=== PATIENT | male | born 1965 | race Caucasian/White ===

== ENCOUNTER → 2020-04-29 | Outpatient (CLI) | payer OTHER, SELFPAY ==
[2020-04-29 15:59] VITALS: BMI 21.7
[2020-04-29 21:44] LABS: Absolute Lymphocyte Count 1.46 X10^3/uL (0.83-4.51); Basophil% 1.7 % (0-1); Eosinophil# 0.61 X10^3/uL; Eosinophils% 10.6 % (0-5); Hematocrit 44.5 % (40-54); Lymphocyte # 1.46 X10^3/ul (4.0); Lymphocyte % 25.3 % (19-41); Mean Corp Hgb Conc 31.5 g/dL (32-36); Mean Corpuscular Hgb 30.4 pg (27.0-32.0); Mean Corpuscular Volume 96.7 fL (80-94); Mean Platelet Vol. 12.3 fl (6.2-12.0); Monocyte# 0.63 X10^3/uL; Monocyte% 10.9 % (0-10); NRBC Flagged by Analyzer 0 % (0-5); Neutrophil # 2.95 X10^3/uL (2.7-7.7); Neutrophil % 51.3 % (47-70); Platelet Count 152 K/mm3 (150-450); RBC Distribution Width CV 13.3 % (11.6-14.6); RBC Distribution Width SD 47.4 fl (35.1-43.9); White Blood Count 5.8 K/mm3 (4.4-11.0)
[2020-04-29 22:01] LABS: ALB/GLOB Ratio 1.4 RATIO (0.9-2.4); AST(SGOT) 19 U/L (15-37); Alanine Aminotransfer ALT/SGPT 27 U/L (16-61); Albumin, Serum 4.1 g/dL (3.2-5.0); Alkaline Phosphatase 83 U/L (45-117); Anion Gap 2 (5-15); BUN 16 mg/dL (7-18); BUN/Creat Ratio 13.6 RATIO (10-20); Calcium,Total 8.8 mg/dL (8.5-10.1); Chloride 106 mmol/L (98-107); Cholesterol 160 mg/dL (200); Creatinine, Serum 1.18 mg/dL (0.70-1.30); EST Glomerular Filtration Rate 68 mL/min (>60); Est Glom Filt Rate - Afr Amer 82 mL/min (>60); Globulin 2.9 g/dL (2.2-4.2); Glucose 90 mg/dL (74-106); High Density Lipoprotein 53 mg/dL; Potassium 4.3 mmol/L (3.5-5.1); Sodium Level 142 mmol/L (136-145); Triglycerides 193 mg/dL; Very Low Density Lipoprotein 39 mg/dL (5-40)
== END | disposition home or self-care (01) ==
LOC: OLS.AHF 21:06 → LABSPEC 04-30 07:39
PROVIDERS: PCP Nurse Practitioner; Referring Provider Nurse Practitioner; Visit Provider Nurse Practitioner
DX: J44.1 Chronic obstructive pulmonary disease with (acute) exacerbation (principal); E78.5 Hyperlipidemia, unspecified; R35.0 Frequency of micturition
CPT/HCPCS: 80053; 80061; 84153; 85025; G0103

== ENCOUNTER → 2020-07-30 | Outpatient (CLI) | payer OTHER, SELFPAY ==
[2020-04-29 15:59] VITALS: BMI 21.7
== END | disposition home or self-care (01) ==
LOC: LABSPEC 10:54
PROVIDERS: PCP Nurse Practitioner; Referring Provider Nurse Practitioner; Visit Provider Nurse Practitioner
DX: U07.1 COVID-19 (principal)
CPT/HCPCS: 87635; C9803; U0003

== ENCOUNTER → 2021-05-24 | Outpatient (CLI) | payer OTHER, SELFPAY ==
[2021-05-24 21:41] LABS: Absolute Lymphocyte Count 1.26 X10^3/uL (0.83-4.51); Absolute Neutrophil Count 4.9 X10^3/uL (2.0-7.7); Basophil% 1.3 % (0-1); Eosinophil# 0.46 X10^3/uL; Eosinophils% 6.1 % (0-5); Hematocrit 47.7 % (40-54); Hemoglobin 15.2 g/dL (13.0-16.5); Lymphocyte # 1.26 X10^3/ul (0.83-4.51); Lymphocyte % 16.6 % (19-41); Mean Corp Hgb Conc 31.9 g/dL (32-36); Mean Corpuscular Hgb 30.3 pg (27.0-32.0); Mean Corpuscular Volume 95.2 fL (80-94); Mean Platelet Vol. 12.6 fl (6.2-12.0); Monocyte# 0.89 X10^3/uL; Monocyte% 11.7 % (0-10); NRBC Flagged by Analyzer 0 % (0-5); Neutrophil # 4.86 X10^3/uL (2.7-7.7); Neutrophil % 64.2 % (47-70); Platelet Count 154 K/mm3 (150-450); RBC Distribution Width CV 13.2 % (11.6-14.6); RBC Distribution Width SD 46.7 fl (35.1-43.9); Red Blood Count 5.01 M/mm3 (4.6-6.2); White Blood Count 7.6 K/mm3 (4.4-11.0)
[2021-05-24 21:53] LABS: ALB/GLOB Ratio 1.3 RATIO (0.9-2.4); AST(SGOT) 19 U/L (15-37); Alanine Aminotransfer ALT/SGPT 31 U/L (16-61); Albumin, Serum 4.2 g/dL (3.2-5.0); Alkaline Phosphatase 72 U/L (45-117); Anion Gap 3 (5-15); BUN 19 mg/dL (7-18); BUN/Creat Ratio 16.5 RATIO (10-20); Calcium,Total 9.3 mg/dL (8.5-10.1); Chloride 104 mmol/L (98-107); Creatinine, Serum 1.15 mg/dL (0.70-1.30); EST Glomerular Filtration Rate 69 mL/min (>60); Est Glom Filt Rate - Afr Amer 84 mL/min (>60); Globulin 3.2 g/dL (2.2-4.2); Glucose 104 mg/dL (74-106); Lipase 78 U/L (73-393); Potassium 3.8 mmol/L (3.5-5.1); Protein, Total 7.4 g/dL (6.4-8.2); Sodium Level 141 mmol/L (136-145)
== END | disposition home or self-care (01) ==
PROVIDERS: Visit Provider Nurse Practitioner
DX: N20.0 Calculus of kidney (principal); R31.29 Other microscopic hematuria
CPT/HCPCS: 80053; 83690; 85025

== ENCOUNTER 2022-01-14 18:35 | Inpatient (IN) | payer OTHER, SELFPAY ==
[2022-01-14] VITALS (10 sets, daily range): BP systolic 127–140; BP diastolic 54–82; PULSE 94–104; RESP 18–26; TEMP 36.6–36.9; O2SAT 74–97; BMI 17.5
--- NOTE | 2022-01-14 18:47 | EKG12_ITS ---
Test Reason : SOB Blood Pressure : / mmHG Vent. Rate : 092 BPM Atrial Rate : 092 BPM P-R Int : 152 ms QRS Dur : 076 ms QT Int : 338 ms P-R-T Axes : 087 011 083 degrees QTc Int : 417 ms Normal sinus rhythm Right atrial enlargement Borderline ECG Confirmed by GRAY SAUCEDO, POOJA ([id number]), material expeditor JEANNA RAUSCH ([id number]) on 01/18/2022 9:08:37 AM Referred By: Confirmed By:POOJA CASTELLANO MD
[2022-01-14] MEDS: Ipratropium/Albuterol Sulfate 3 ML AMPUL.NEB INHALATION (18:54)
[2022-01-14] MEDS: MethylPREDNISolone 125 MG/2 ML Vial IV (18:54)
[2022-01-14] MEDS: Albuterol 2.5 MG/3 ML VIAL.NEB. INHALATION ×3 (19:00→19:18)
--- NOTE | 2022-01-14 19:08 | EDS_ITS ---
HPI History of Present Illness Chief Complaint: Shortness of Breath Informant: patient and PCP Onset/Context/Timing Onset: Days (Onset of shortness of breath Monday got worse on Monday while showering) Context: gradual Timing: Continuous Quality: Positive for Dyspnea on exertion and Wheezing; Negative for Orthopnea and PND Current Severity: Severe Maximum Severity: Severe Worsened by: Exertion and Coughing Relieved by: Nothing Associated Symptoms cough; Negative for rhinorrhea, post nasal drip, ear pain, fever, sore throat, subjective or chills Chest Pain: Positive for None Narrative Narrative: Patient is a 56-year-old male who is only on an albuterol inhaler. He takes no other medicines. He does have history of COPD and GERD. He denies any ill contacts. He denies fever, chills night sweats. He denies history of VTE, leg pain, swelling discoloration. He has no risk factors. He denies headache, visual, ocular auditory symptoms. Denies rhinorrhea, congestion postnasal drainage. Denies sore throat. [place] change in voice. He denies chest discomfort. He does admit to shortness of breath and minimal activity significantly worsens his breathing. He denies nausea, vomiting diarrhea. Has had an unintentional weight loss. There is no known history of cancer. He denies night sweats or bone pain. PE Risk Factors: Negative for Cancer, OCP + Smoking + > 35, Prior DVT or PE, Recent immobilization, Recent surgery and Recent travel Prior similar symptoms: No Recent Illness/Hospitalization: No PFSH PFSH Medical History Asthma Asthma exacerbation in COPD COPD without exacerbation Home Medications budesonide 160 mcg-glycopyr 9 mcg-formot 4.8 mcg/actuation HFA inhaler 2 inh INHALATION BID #10.7 g 05/24/21 [Rx Last Taken Unknown] Allergy/AdvReac Type Severity Reaction Status Date / Time bupropion [From Wellbutrin] Allergy Severe DIZZY AND Verified 01/14/22 18:36 FELT WEIRD varenicline [From Chantix] AdvReac Severe made him Verified 01/14/22 18:36 feel weird Social History (Updated 01/14/22 @ 19:[address] Dwayne Monterroso MD) household members: none Smoking Status: Light Smoker (<10/day) how long ago did patient quit smoking: Patient 5 years ago smoked 2 to 2.5 packs/day second hand exposure: Yes alcohol intake: never substance use type: does not use ROS ROS ED Constitutional Constitutional ED: Reports weight loss; Denies chills, fever(s) or sweats Eyes Eyes: Denies blurry vision, change in vision or diplopia ENT ENT ED: Denies ear pain, rhinorrhea or sore throat Cardiovascular Cardiovascular: Reports palpitations and racing heartbeat; Denies chest pain, orthopnea or paroxysmal nocturnal dyspnea Respiratory/Chest Respiratory/Chest: Reports cough, dyspnea and dyspnea on exertion; Denies orthopnea, paroxysmal nocturnal dyspnea or sputum Gastrointestinal Gastrointestinal: Denies abdominal pain, constipation, diarrhea, nausea or vomiting Genitourinary Genitourinary ED: Denies dysuria, hematuria or urinary frequency Musculoskeletal Musculoskeletal: Denies arthralgias, back pain, myalgias or neck pain Integumentary Denies rash Neurologic Neurologic: Reports weakness; Denies headache(s) or paresthesias Endocrine Endocrinology: Denies polydipsia, polyphagia or polyuria Hematologic/Lymphatic Hematologic/Lymphatic: Denies easy bleeding or easy bruising EXAM Physical Exam Const Vital Signs: 01/14/22 18:36 01/14/22 18:51 01/14/22 18:52 Temperature 98.2 F Temperature Source Temporal Pulse Rate 103 H Respiratory Rate 26 H Respiratory Effort Short of Breath Labored Respiratory Depth Normal Respiratory Pattern Normal Blood Pressure 132/72 H Blood Pressure Mean 92 Pulse Ox 74 Oxygen Delivery Method Room Air Nasal Cannula Nasal Cannula Oxygen Flow Rate (L/min) 6 4 4 01/14/22 19:22 01/14/22 20:03 Temperature Temperature Source Pulse Rate 102 H Respiratory Rate 18 Respiratory Effort Labored Accessory Muscle Use Retracting Respiratory Depth Deep Respiratory Pattern Tachypnea Blood Pressure 127/82 H Blood Pressure Mean 97 Pulse Ox 97 Oxygen Delivery Method Nasal Cannula Nasal Cannula Oxygen Flow Rate (L/min) 6 6 Patient is obvious respiratory distress with use of accessory muscles and retractions. He is only able to say 1 word before gasping for breath. Positive well nourished, well developed and cachectic General Appearance ED: well developed and cachectic; Negative for NAD or pallor Nutritional Appearance: cachectic HEENT Reports TM's clear and dry mucous membranes atraumatic; Negative for trauma or tenderness Tympanic Membrane ED: Yes TM's clear Mouth ED: Yes dry mucous membranes Mouth: dry mucous membranes Eyes PERRL and EOMs intact bilaterally General Eye ED: Negative for pale conjunctiva or scleral icterus Neck no lymphadenopathy, supple, no meningeal signs and no JVD Neck Narrative: Trachea is midline. There is no inspiratory expiratory stridor. Resp No normal respiratory effort and No clear to auscultation bilaterally Auscultation: wheezes expiratory wheezes and throughout and diminished lung sounds Cardio regular rhythm, S1 normal heart sound, S2 normal heart sound and no murmurs Rate: tachycardic GI non-tender, non-distended and no masses Auscultation: normoactive bowel sounds Palpation: soft Back/Spine no CVA tenderness and normal to inspection General Back: Negative for tenderness Extremity normal to inspection Extremity Narrative: There is no asymmetry, swelling, discoloration, leg vein distention, palpable cords or tenderness along the distribution of the deep venous system. General Extremety ED: Negative for edema or tenderness General Extremity: Negative for edema Neuro oriented x3 and CN's II-XII intact bilaterally Frank Coma Scale: document GCS findings Spontaneous Obeys Commands Oriented 15 Sensorium / Orientation: alert Psych mental status grossly normal Thought Process: normal thought process Skin no wounds General Skin Exam: Negative for jaundice or pallor Lesions: no lesions Rashes: no rashes MDM MDM MDM Narrative Medical decision making narrative: She presents with respiratory distress. Need to evaluate for pneumothorax, COPD exacerbation, pneumonia doubt CHF. Pulmonary embolus is in the differential as well. Because of the wheezing history of smoking he was treated with Solu-Medrol, DuoNeb and albuterol. Lab Data Attestation: I reviewed the patient's lab results. Lab results narrative: Lactate is elevated due to hypoxia, type I/type a lactic acidosis Patient has polycythemia vera due to smoking. Coags normal. Electrolyte panel reveals elevated CO2 which is consistent with chronic respiratory failure. Labs: Laboratory Results - last 24 hr 01/14/22 01/14/22 01/14/22 18:50 18:50 18:50 WBC 8.6 RBC 5.76 Hgb 18.1 H* Hct 54.5 H MCV 94.6 H MCH 31.4 MCHC 33.2 RDW Std Deviation 46.1 H RDW Coeff of Hansel 13.1 Plt Count 170 MPV 12.1 H Immature Gran % (Auto) 0.200 Neut % (Auto) 80.7 H Lymph % (Auto) 8.5 L [place] % (Auto) 9.6 Eos % (Auto) 0.5 Baso % (Auto) 0.5 Absolute Neuts (auto) 6.9 Absolute Lymphs (auto) 0.73 L Nucleated RBC % 0 Diff Path Review May foll PT 13.4 INR 1.1 APTT 30.4 Sodium 136 Potassium 4.8 Chloride 97 L Carbon Dioxide 35.0 H Anion Gap 4 L BUN 23 H Creatinine 1.04 Estim Creat Clear Calc 55.63 Est GFR (MDRD) Af Amer 94 Est GFR (MDRD) Non-Af 78 BUN/Creatinine Ratio 22.1 H Glucose 114 H Lactic Acid Calcium 9.8 Total Bilirubin 0.90 AST 23 ALT 43 Alkaline Phosphatase 118 H Total Protein 8.5 H Albumin 4.4 Globulin 4.1 Albumin/Globulin Ratio 1.1 01/14/22 18:50 WBC RBC Hgb Hct MCV MCH MCHC RDW Std Deviation RDW Coeff of Hansel Plt Count MPV Immature Gran % (Auto) Neut % (Auto) Lymph % (Auto) [place] % (Auto) Eos % (Auto) Baso % (Auto) Absolute Neuts (auto) Absolute Lymphs (auto) Nucleated RBC % Diff Path Review PT INR APTT Sodium Potassium Chloride Carbon Dioxide Anion Gap BUN Creatinine Estim Creat Clear Calc Est GFR (MDRD) Af Amer Est GFR (MDRD) Non-Af BUN/Creatinine Ratio Glucose Lactic Acid 2.4 H* Calcium Total Bilirubin AST ALT Alkaline Phosphatase Total Protein Albumin Globulin Albumin/Globulin Ratio ABG reveals acute on chronic CO2 retention with hypoxia. pH 7.32, PCO2 59.7, PO2 75.3, bicarb 31.4 with base excess of 5.4. O2 saturation 93.3% on supplemental oxygen by nasal cannula, 40% ABG Data ABG results: ABG 01/14/22 19:07 Specimen Type ART pH 7.33 L Bicarbonate Actual 31.3 H Total CO2 33 Base Excess 5 H O2 Saturation 93 L O2 % 40 ABG pCO2 59.7 H ABG pO2 75 O2 Delivery Device Cannula Radiography Chest X-Ray - ED: 1 View, Read by ED Physician (Hyper patient with chronic changes. Cardiac silhouette and size normal. Perihilar regions unremarkable. Osseous structures unremarkable.), Normal, Heart, Mediastinum, Bony Structures, No Acute Disease and Chronic Changes EKG Initial EKG: Attestation: I personally reviewed and interpreted this EKG as follows: Interpretation: Sinus Rhythm (Trickle rate is 92. MN interval is 152 ms. QS duration 76 ms. QT intervals 338 ms. [place] is normal. There is evidence of biatrial enlargement consistent with cor pulmonale. T waves are slightly peaked however his potassium is normal.) Critical Care Time Critical Care Time: Yes Critical care time (excluding procedures): 30-74 minutes (31 minutes), Including time spent: (History, physical, documentation, interpretation of laboratory results and chest x-ray), Discussing w/Patient &/or Family/Tube Winder, Discussing w/Consultants and Arranging Admission or Transfer Discharge Plan Dx/Rx/DC Orders Clinical Impression: Acute on chronic respiratory failure with hypoxia and hypercapnia, Chronic obstructive pulmonary disease with (acute) exacerbation, Acidosis, lactic Disposition Disposition: Acute Care Hospital [facility]
--- NOTE | 2022-01-14 19:15 | RAD_ITS ---
STUDY: X-RAY CHEST REASON FOR EXAM: Male, 56 years old. Respiratory failure TECHNIQUE: AP portable. 7:13 PM. 2 images. COMPARISON: None. FINDINGS: LUNGS: Lungs are hyperinflated. No consolidation. No pneumothorax. MEDIASTINUM: Unremarkable. CARDIAC SILHOUETTE: Not enlarged. BONES AND SOFT TISSUES: No acute abnormalities. RAD/Chest 1 View (Portable) IMPRESSION: Hyperinflated. No infiltrates. Electronically Signed: Cristel Fontaine MD at 20:17 EDT ,
[2022-01-14 19:16] LABS: Base Excess 5 mmol/L (-2 to +2); Bicarbonate 31.3 mmol/L (22-26); Blood Gas Specimen Type ART; FI02 40; O2 Delivery Device Cannula; PO2 75 mmHG (75-100); SO2 93 % (95-99); Total Carbon Dioxide 33 mmol/L; pCO2 59.7 mmHg (35-45); pH 7.33 (7.35-7.45)
[2022-01-14 19:16] LABS: Absolute Lymphocyte Count 0.73 X10^3/uL (0.83-4.51); Absolute Neutrophil Count 6.9 X10^3/uL (2.0-7.7); Basophil# 0.04 X10^3/uL; Basophil% 0.5 % (0-1); Eosinophil# 0.04 X10^3/uL; Eosinophils% 0.5 % (0-5); Hematocrit 54.5 % (40-54); Hemoglobin 18.1 g/dL (13.0-16.5); Lymphocyte # 0.73 X10^3/ul (0.83-4.51); Lymphocyte % 8.5 % (19-41); Mean Corp Hgb Conc 33.2 g/dL (32-36); Mean Corpuscular Hgb 31.4 pg (27.0-32.0); Mean Corpuscular Volume 94.6 fL (80-94); Mean Platelet Vol. 12.1 fl (6.2-12.0); Monocyte# 0.82 X10^3/uL; Monocyte% 9.6 % (0-10); NRBC Flagged by Analyzer 0 % (0-5); Neutrophil # 6.93 X10^3/uL (2.7-7.7); Neutrophil % 80.7 % (47-70); Platelet Count 170 K/mm3 (150-450); RBC Distribution Width CV 13.1 % (11.6-14.6); RBC Distribution Width SD 46.1 fl (35.1-43.9); Red Blood Count 5.76 M/mm3 (4.6-6.2); White Blood Count 8.6 K/mm3 (4.4-11.0)
[2022-01-14 19:32] LABS: Differential Indicated SCAN CRITERIA MET
[2022-01-14 19:33] LABS: ALB/GLOB Ratio 1.1 RATIO (0.9-2.4); AST(SGOT) 23 U/L (15-37); Alanine Aminotransfer ALT/SGPT 43 U/L (16-61); Albumin, Serum 4.4 g/dL (3.2-5.0); Alkaline Phosphatase 118 U/L (45-117); Anion Gap 4 (5-15); BUN 23 mg/dL (7-18); BUN/Creat Ratio 22.1 RATIO (10-20); Calcium,Total 9.8 mg/dL (8.5-10.1); Chloride 97 mmol/L (98-107); Creatinine, Serum 1.04 mg/dL (0.70-1.30); EST Glomerular Filtration Rate 78 mL/min (>60); Est Glom Filt Rate - Afr Amer 94 mL/min (>60); Estimated Creatinine Clearance 55.63 ml/min; Globulin 4.1 g/dL (2.2-4.2); Glucose 114 mg/dL (74-106); Potassium 4.8 mmol/L (3.5-5.1); Protein, Total 8.5 g/dL (6.4-8.2); Sodium Level 136 mmol/L (136-145)
[2022-01-14 19:34] LABS: International Normalized Ratio 1.1; Partial Thromboplast Time 30.4 Seconds (24.1-36.2); Prothrombin Time (Protime)PT. 13.4 SECONDS (11.7-14.9)
[2022-01-14 19:48] LABS: Lactic Acid 2.4 mmol/L (0.4-1.9)
--- NOTE | 2022-01-14 20:14 | PCM.HP.STD ---
HPI - General HPI Narrative MARJORIE VANEGAS, is a 56 M who presents to the hospital after seeing his PCP for shortness of breath. At the primary care office, he was found to be 73% on room air and was transferred to the ER. In the ER an ABG was performed which demonstrated mild acidosis with pH of 7.33 with a PCO2 of 59.7 and a PO2 of 75. He was started on oxygen in the ED, flu and COVID testing were negative. It does look like he has hypoxic induced elevation of his hemoglobin to 18.1, renal function is stable [facility] Medical History Asthma Asthma exacerbation in COPD COPD without exacerbation Home Medications budesonide 160 mcg-glycopyr 9 mcg-formot 4.8 mcg/actuation HFA inhaler 2 inh INHALATION BID #10.7 g 05/24/21 [Rx Last Taken Unknown] Allergy/AdvReac Type Severity Reaction Status Date / Time bupropion [From Wellbutrin] Allergy Severe DIZZY AND Verified 01/14/22 18:36 FELT WEIRD varenicline [From Chantix] AdvReac Severe made him Verified 01/14/22 18:36 feel weird Family History (Updated 01/14/22 @ 20:[address] Stephen Hurley MD) Other Diabetes Surgical History no surgical history no surgical history Social History (Updated 01/14/22 @ 19:[address] Dwayne Monterroso MD) household members: none Smoking Status: Light Smoker (<10/day) how long ago did patient quit smoking: Patient 5 years ago smoked 2 to 2.5 packs/day second hand exposure: Yes alcohol intake: never substance use type: does not use ROS Constitutional Constitutional: Denies chills, fatigue, fever(s) or malaise Eyes Eyes: Denies blurry vision ENT HEENT: Denies headache(s) or nasal discharge Cardiovascular Cardiovascular: Denies chest pain, dyspnea on exertion or syncope Respiratory/Chest Respiratory/Chest: Reports cough and shortness of breath at rest; Denies shortness of breath with exertion Gastrointestinal Gastrointestinal: Denies constipation, diarrhea, nausea or vomiting Genitourinary Genitourinary: Denies dysuria Neurologic Neurologic: Denies focal weakness, numbness or tremor(s) Psychiatric Psychiatric: Denies anxiety or depression Vital Signs Vital Signs Vital Signs: 01/14/22 18:36 01/14/22 18:51 01/14/22 18:52 Temperature 98.2 F Temperature Source Temporal Pulse Rate 103 H Respiratory Rate 26 H Respiratory Effort Short of Breath Labored Respiratory Depth Normal Respiratory Pattern Normal Blood Pressure 132/72 H Blood Pressure Mean 92 Pulse Ox 74 Oxygen Delivery Method Room Air Nasal Cannula Nasal Cannula Oxygen Flow Rate (L/min) 6 4 4 01/14/22 19:22 01/14/22 20:03 Temperature Temperature Source Pulse Rate 102 H Respiratory Rate 18 Respiratory Effort Labored Accessory Muscle Use Retracting Respiratory Depth Deep Respiratory Pattern Tachypnea Blood Pressure 127/82 H Blood Pressure Mean 97 Pulse Ox 97 Oxygen Delivery Method Nasal Cannula Nasal Cannula Oxygen Flow Rate (L/min) 6 6 Weight Weight: 112 lb Body Mass Index (BMI) 17.5 Physical Exam Const alert and oriented x3 General Appearance: cooperative HEENT normocephalic Mouth: dry mucous membranes Eyes PERRL, EOMs intact bilaterally and conjunctivae normal Neck supple and no JVD Resp normal respiratory effort, no retractions and no use of accessory muscles Effort and Inspection: prolonged expiratory phase Auscultation: wheezes; Negative for crackles, rales or rhonchi Cardio regular rhythm, S1 normal heart sound, S2 normal heart sound and no murmurs Rate: tachycardic GI soft to palpation, non-tender and non-distended; Negative for hepatosplenomegaly Extremity no clubbing, cyanosis or edema Skin no rashes or lesions noted Neuro no focal motor deficits and no sensory deficits noted Psych Appearance: appropriate Mood & Affect: flat affect Results Lab / Micro Data Result Diagrams: 01/14/22 18:50 01/14/22 18:50 Labs: Laboratory Results - last 24 hr 01/14/22 18:50: WBC 8.6, RBC 5.76, Hgb 18.1 H*, Hct 54.5 H, MCV 94.6 H, MCH 31.4, MCHC 33.2, RDW Std Deviation 46.1 H, RDW Coeff of Hansel 13.1, Plt Count 170, MPV 12.1 H, Immature Gran % (Auto) 0.200, Neut % (Auto) 80.7 H, Lymph % (Auto) 8.5 L, [place] % (Auto) 9.6, Eos % (Auto) 0.5, Baso % (Auto) 0.5, Absolute Neuts (auto) 6.9, Absolute Lymphs (auto) 0.73 L, Nucleated RBC % 0, Diff Path Review May foll 01/14/22 18:50: PT 13.4, INR 1.1, APTT 30.4 01/14/22 18:50: Sodium 136, Potassium 4.8, Chloride 97 L, Carbon Dioxide 35.0 H, Anion Gap 4 L, BUN 23 H, Creatinine 1.04, Estim Creat Clear Calc 55.63, Est GFR (MDRD) Af Amer 94, Est GFR (MDRD) Non-Af 78, BUN/Creatinine Ratio 22.1 H, Glucose 114 H, Calcium 9.8, Total Bilirubin 0.90, AST 23, ALT 43, Alkaline Phosphatase 118 H, Total Protein 8.5 H, Albumin 4.4, Globulin 4.1, Albumin/Globulin Ratio 1.1 01/14/22 18:50: Lactic Acid 2.4 H* Micro: Microbiology 01/14/22 18:55 Nasal Secretion SARS-CoV-2 & FLU Antigen (Rapid) - Final ABG Data ABG results: ABG 01/14/22 19:07 Specimen Type ART pH 7.33 L Bicarbonate Actual 31.3 H Total CO2 33 Base Excess 5 H O2 Saturation 93 L O2 % 40 ABG pCO2 59.7 H ABG pO2 75 O2 Delivery Device Cannula Assessment & Plan Assessment/Plan (1) Acute on chronic respiratory failure with hypoxia and hypercapnia: (2) Chronic obstructive pulmonary disease with (acute) exacerbation: PLAN: 1. Acute on chronic hypoxic and hypercapnic respiratory failure secondary to COPD exacerbation ? Continue with Solu-Medrol and duo nebs ? Continue to wean oxygen, incentive spirometry ? Flu and COVID-negative ? Would benefit from pulmonology outpatient follow-up, chest x-ray shows significant hyperinflation ? No's white blood cell count or fever so we will hold off on any antibiotics, Will obtain a sputum culture DVT: Lovenox Charges/Coding Visit Charges Inpatient E&M: 46983 Init Hosp L2
[2022-01-14] MEDS: 0.9% Saline Lock 10 ML Syringe IV (22:00)
[2022-01-14 23:04] LABS: Reflex Lactate? Y
[2022-01-15] VITALS (20 sets, daily range): BP systolic 110–142; BP diastolic 61–70; PULSE 83–106; RESP 16–20; TEMP 36.1–36.7; O2SAT 83–96
[2022-01-15 00:25] LABS: Lactic Acid 1.3 mmol/L (0.4-1.9)
[2022-01-15] MEDS: Acetaminophen 325 MG Tablet 650 MG PO (03:25)
[2022-01-15 06:21] LABS: Absolute Lymphocyte Count 0.39 X10^3/uL (0.83-4.51); Absolute Neutrophil Count 4.2 X10^3/uL (2.0-7.7); Basophil# 0.01 X10^3/uL; Basophil% 0.2 % (0-1); Hematocrit 49.4 % (40-54); Hemoglobin 15.7 g/dL (13.0-16.5); Lymphocyte # 0.39 X10^3/ul (0.83-4.51); Mean Corp Hgb Conc 31.8 g/dL (32-36); Mean Corpuscular Volume 94.3 fL (80-94); Mean Platelet Vol. 11.9 fl (6.2-12.0); Monocyte# 0.21 X10^3/uL; Monocyte% 4.3 % (0-10); NRBC Flagged by Analyzer 0 % (0-5); Neutrophil # 4.24 X10^3/uL (2.7-7.7); Neutrophil % 87.1 % (47-70); POSITIVE DIFFERENTIAL YES; Platelet Count 157 K/mm3 (150-450); RBC Distribution Width CV 12.8 % (11.6-14.6); RBC Distribution Width SD 44.6 fl (35.1-43.9); Red Blood Count 5.24 M/mm3 (4.6-6.2); White Blood Count 4.9 K/mm3 (4.4-11.0)
[2022-01-15 06:24] LABS: Differential Indicated SCAN CRITERIA MET
[2022-01-15 06:57] LABS: Anion Gap 5 (5-15); BUN 21 mg/dL (7-18); BUN/Creat Ratio 26.9 RATIO (10-20); Calcium,Total 9.4 mg/dL (8.5-10.1); Chloride 97 mmol/L (98-107); Creatinine, Serum 0.78 mg/dL (0.70-1.30); EST Glomerular Filtration Rate 108 mL/min (>60); Est Glom Filt Rate - Afr Amer 131 mL/min (>60); Estimated Creatinine Clearance 74.32 ml/min; Glucose 145 mg/dL (74-106); Potassium 4.7 mmol/L (3.5-5.1); Sodium Level 133 mmol/L (136-145)
[2022-01-15 07:00] LABS: Differential Comment SCANNED
[2022-01-15] MEDS: Ipratropium/Albuterol Sulfate 3 ML AMPUL.NEB INHALATION ×4 (07:02→18:41)
--- NOTE | 2022-01-15 07:28 | PN.HOSP_ITS ---
Subjective Subjective Patient is very short of breath. He is lifelong smoker started in teenage at age of 13. Smokes about a pack per day recently cut to half pack in last 3 years. Last smoking was about 1 week ago. Objective Data Objective Data Vital Signs: Vital Signs Temp Pulse Resp BP Pulse Ox 97.9 F 83 19 H 142/62 H 92 01/15/22 05:58 01/15/22 06:37 01/15/22 06:10 01/15/22 05:58 01/15/22 05:58 Oxygen Flow Rate (L/min) 8 Oxygen Delivery Method High Flow Weight: 112 lb 3.445 oz Body Mass Index (BMI) 17.5 Lab / Micro Data Result Diagrams: 01/15/22 05:59 01/15/22 05:59 Labs: Laboratory Results - last 24 hr 01/14/22 18:50: WBC 8.6, RBC 5.76, Hgb 18.1 H*, Hct 54.5 H, MCV 94.6 H, MCH 31.4, MCHC 33.2, RDW Std Deviation 46.1 H, RDW Coeff of Hansel 13.1, Plt Count 170, MPV 12.1 H, Immature Gran % (Auto) 0.200, Neut % (Auto) 80.7 H, Lymph % (Auto) 8.5 L, [place] % (Auto) 9.6, Eos % (Auto) 0.5, Baso % (Auto) 0.5, Absolute Neuts (auto) 6.9, Absolute Lymphs (auto) 0.73 L, Nucleated RBC % 0, Diff Path Review May foll 0 01/14/22 18:50: PT 13.4, INR 1.1, APTT 30.4 01/14/22 18:50: Sodium 136, Potassium 4.8, Chloride 97 L, Carbon Dioxide 35.0 H, Anion Gap 4 L, BUN 23 H, Creatinine 1.04, Estim Creat Clear Calc 55.63, Est GFR (MDRD) Af Amer 94, Est GFR (MDRD) Non-Af 78, BUN/Creatinine Ratio 22.1 H, Glucose 114 H, Calcium 9.8, Total Bilirubin 0.90, AST 23, ALT 43, Alkaline Phosphatase 118 H, Total Protein 8.5 H, Albumin 4.4, Globulin 4.1, Albumin/Globulin Ratio 1.1 01/14/22 18:50: Lactic Acid 2.4 H* 01/14/22 23:44: Lactic Acid 1.3 01/15/22 05:59: WBC 4.9, RBC 5.24, Hgb 15.7, Hct 49.4, MCV 94.3 H, MCH 30.0, MCHC 31.8 L, RDW Std Deviation 44.6 H, RDW Coeff of Hansel 12.8, Plt Count 157, MPV 11.9, Immature Gran % (Auto) 0.400, Neut % (Auto) 87.1 H, Lymph % (Auto) 8.0 L, [place] % (Auto) 4.3, Eos % (Auto) 0.0, Baso % (Auto) 0.2, Absolute Neuts (auto) 4.2, Absolute Lymphs (auto) 0.39 L, Nucleated RBC % 0, Differential Comment SCANNED 01/15/22 05:59: Sodium 133 L, Potassium 4.7, Chloride 97 L, Carbon Dioxide 31.0, Anion Gap 5, BUN 21 H, Creatinine 0.78, Estim Creat Clear Calc 74.32, Est GFR (MDRD) Af Amer 131, Est GFR (MDRD) Non-Af 108, BUN/Creatinine Ratio 26.9 H, Glucose 145 H, Calcium 9.4 Micro: Microbiology 01/14/22 18:55 Nasal Secretion SARS-CoV-2 & FLU Antigen (Rapid) - Final ABG Data ABG results: ABG 01/14/22 19:07 Specimen Type ART pH 7.33 L Bicarbonate Actual 31.3 H Total CO2 33 Base Excess 5 H O2 Saturation 93 L O2 % 40 ABG pCO2 59.7 H ABG pO2 75 O2 Delivery Device Cannula Radiography Diagnostic Testing: Radiology Impression Chest X-Ray 01/14/22 19:15 IMPRESSION: Hyperinflated. No infiltrates. Physical Exam Narrative Patient lost 10 pounds weight in last 3 months. General: Alert, Oriented x3, Cooperative, pulmonary cachexia HEENT: Atraumatic, PERRLA, EOMI, Normocephalic Oral: No Gingival or Mucosal Lesions/ Ulcerations Neck: Supple, No JVD, Negative Carotid Bruits Chest/lungs: Pectus excavatum. Air entry severely diminished in all lung echevarria. Bilateral rhonchi present. Dyspnea on conversation/minimal exertion. Cardiovascular: Heart rate in 90s normal S1, Normal S2, No murmurs Abdomen: Bowel Sounds Present, Soft, Non Tender, Non-Distended : No renal angle tenderness. No suprapubic tenderness. Extremities: No edema, Capillary Refill Less than 3 Seconds Skin: No rashes, No breakdown Musculoskeletal: Moderate loss of muscles of extremities loss of subcutaneous fat. No Tenderness to Palpation of Joints or Extremities Neurological: Cranial nerves II-XII grossly intact, DTR 2+/4 and Symmetrical, Neuro grossly intact Psych/Mental Status: Normal Affect, Appropriate Assessment & Plan Assessment/Plan (1) Acute on chronic respiratory failure with hypoxia and hypercapnia: (2) Chronic obstructive pulmonary disease with (acute) exacerbation: PLAN: This is a 56-year-old gentleman was admitted for severe shortness of breath, hypoxia 73% on room air. 1. Acute on chronic hypoxic and hypercapnic respiratory failure secondary to COPD exacerbation: ABG 7.33/60/75 on 40% FiO2. ABG suggestive of chronic respiratory acidosis with bicarb 35. ABG interpretation shows mixed acid base abnormality with chronic respiratory acidosis and metabolic alkalosis. Discussed with the manager credit collections and agreed to see inpatient. Continue IV Solu- Medrol DuoNeb nebulization every 4 hourly scheduled. Continue to wean oxygen. Incentive spirometry and Pep. Chest x-ray shows hyperinflation flattening of diaphragm, increased craniocaudal diameter suggestive of emphysema ? Flu and COVID-negative. Started on Zithromax for anti-inflammatory effect 2. 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 Medical history mentions asthma and COPD both. 3. GERD: On PPI 4. DVT: Lovenox Charges/Coding Visit Charges Inpatient E&M: 10510 Subs Hosp L2
[2022-01-15] MEDS: Enoxaparin 40 MG/0.4 ML Syringe SC (08:35)
--- NOTE | 2022-01-15 11:40 | CASEMGMT ---
RN AVEL CASINO ASSISTANT MANAGER AVEL to room to meet with patient for initial transition planning/care coordination assessment. RN AVEL introduced self and role at [facility].? Pt voices understanding and consents to assessment at this time.? Pt sitting up in chair in room in no distress at this time.? Parents @ bedside and pt agreeable to assessment w/them present. Pt is A/O at this time and answers all questions appropriately.?? Care providers, pharmacy, and demographics verified/updated at this time. PCP: Alannah Hart NP Specialists: none [facility]acy[facility] Insurance: [facility] Prescription Benefit:? Yes Living Will/HPOA:? Pt does not currently have LW/HCPOA and declines info at this time.? Pt made aware that he can contact as an out-pt and make appt in the future if he decides he would like to talk with someone about this or would like to utilize [facility] social work for advanced directive completion.? Given [employer] card with information and contact number. Pt expresses understanding.? LNOK: 2 adult children. Parents, Marlin and Sammy Living Arrangements: Lives alone in one-story home w/one step to enter. Independent w/ADL's and IADL's. Transportation: Pt states drives self and states no transportation concerns at this time.? DME: ?Pt has no DME. Does not have pulse ox or oxygen. Reviewed list of local DME companies if O2 needed @ d/c. Pt has no preference. HHC/SNF: No hx of either. No needs identified. Pt wishes to return home and states has no concerns with going home at time of discharge.? Pt and parents voice no further concerns/needs at this time.? PLAN: ?Home w/discharge plans in place. Pt will need home O2 ambulatory testing completed prior to discharge. Pt to be provided w/pulse ox @ discharge. Green sheet placed on chart for pulse ox and O2, if needed. Jagdish ALDRICH RN, CM
[2022-01-15] MEDS: 0.9% Saline Lock 10 ML Syringe IV ×2 (13:41→21:17)
[2022-01-15] MEDS: Azithromycin 250 MG Tablet 500 MG PO (14:45)
--- NOTE | 2022-01-15 19:35 | NURSING ---
RN came in room, patient stated SOB, on was 83% on 1lnc. Increased to 7lnc to recover then back down to 3lnc 94% on that. Patient states he feels better.
[2022-01-16] VITALS (17 sets, daily range): BP systolic 104–144; BP diastolic 62–76; PULSE 85–116; RESP 18–22; TEMP 36.2–36.9; O2SAT 84–98
[2022-01-16] MEDS: 0.9% Saline Lock 10 ML Syringe IV ×3 (06:01→21:26)
[2022-01-16] MEDS: Acetaminophen 325 MG Tablet 650 MG PO (06:05)
--- NOTE | 2022-01-16 06:51 | CON.PCM.CC_ITS ---
Assessment & Plan Assessment/Plan (1) Chronic obstructive pulmonary disease with (acute) exacerbation: PLAN: RECOMMENDATIONS: 1. Wean supplemental oxygen to maintain saturations at or above 90%. 2. Continue azithromycin to complete treatment course. 3. Continue scheduled bronchodilators and IV steroids. 4. Anticipate prolonged steroid taper at discharge. 5. Perform walking oximetry study prior to consideration for discharge home. 6. The patient should follow-up in the pulmonary medicine clinic in 2 weeks. IMPRESSIONS: 1. COPD exacerbation with associated hypoxemia and hypercapnia The patient has a self-reported history of COPD of unknown severity. He has never been evaluated by a farm equipment engineer, nor has he ever completed pulmonary function studies. Despite this, the patient is currently being maintained on Breztri and as needed albuterol by his PCP. There is no clear precipitating etiology for his acute respiratory decompensation. He does report compliance with his prescribed inhalers. Although he does have an extensive tobacco abuse history, he claims to have quit smoking 1 week ago. Accordingly, it is certai nly reasonable to continue azithromycin to complete a treatment course along with scheduled bronchodilators and steroids. I would plan to send him home with a prolonged steroid taper. The patient should also complete a walking oximetry study prior to consideration for discharge home. The patient is agreeable to follow-up in the pulmonary medicine clinic within 2 weeks. Ideally, he needs to have baseline PFTs completed. In addition, given his age and smoking history, he would be a candidate for low-dose CT scan, which can be ordered at his follow-up office visit. 2. Chronic tobacco dependency, in remission The patient has an extensive tobacco abuse history, smoking upwards of 1.5 packs of cigarettes per day, but claims to have quit smoking approximately 1 week ago. Ongoing cessation was strongly recommended. As noted above, the patient is a candidate for yearly low-dose CT scan, which can be ordered at his follow-up pulmonary office visit. This note was generated with [employer] dictation software. It may contain incorrect words, spelling, and punctuation that were not noted in checking the note before signing. HPI Consult Data Date of Consult: 01/16/22 HPI Narrative Reason for Consultation: COPD exacerbation HPI Narrative: The patient is a 56-year-old male, with a history as outlined below, who presented to the emergency department on January 14 with progressive dyspnea and wheezing. The patient has a self-reported history of COPD of unknown severity. He has never been evaluated by a farm equipment engineer, nor has he ever completed pulmonary function studies. The patient is currently being maintained on Breztri and as needed albuterol by his PCP. He does report frequent utilization of his rescue inhaler throughout the day. He does not utilize supplemental oxygen at his baseline. The patient has an extensive tobacco abuse history smoking upwards of 1.5 packs of cigarettes per day, but claims to have quit smoking approximately 1 week ago. 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 On presentation to the emergency department, the patient was noted to be afebrile and hemodynamically stable. Initial laboratory evaluation revealed an elevated hemoglobin to 18 g/dL. Coagulation profile was unremarkable. Chemistry profile was notable for a bicarbonate of 35. Creatinine was within normal limits. Lactate was elevated at 2.4. Arterial blood gas revealed a pH of 7.3 with a PCO2 of 60 and PO2 of 75. Plain film chest x-ray demonstrated hyperinflated lung echevarria without any evidence of consolidation or infiltrate. Rapid flu and COVID testing was negative. The patient was placed on azithromycin, bronchodilators and IV steroids. He was subsequently admitted to the progressive care unit for further management. [facility] Medical History Asthma Asthma exacerbation in COPD COPD without exacerbation Home Medications [id number] [Breztri Aerosphere] 2 inh INHALATION BID 01/14/22 [History Last Taken 01/14/22] Allergy/AdvReac Type Severity Reaction Status Date / Time bupropion [From Wellbutrin] Allergy Severe DIZZY AND Verified 01/14/22 18:36 FELT WEIRD varenicline [From Chantix] AdvReac Severe made him Verified 01/14/22 18:36 feel weird Family History Other Diabetes Surgical History no surgical history Social History household members: none Smoking Status: Light Smoker (<10/day) how long ago did patient quit smoking: Patient 5 years ago smoked 2 to 2.5 packs/day second hand exposure: Yes alcohol intake: never substance use type: does not use ROS Constitutional Constitutional: Denies chills, fatigue or fever(s) Eyes Eyes: Denies blurry vision or change in vision ENT HEENT: Denies dizziness, dysphagia or epistaxis Cardiovascular Cardiovascular: Reports dyspnea; Denies chest pain, claudication or dizziness Respiratory/Chest Respiratory/Chest: Reports cough, dyspnea and wheezing Gastrointestinal Gastrointestinal: Denies abdominal pain, diarrhea, nausea or vomiting Genitourinary Genitourinary: Denies difficulty urinating Musculoskeletal Musculoskeletal: Denies arthralgias, back pain, joint pain or myalgias Integumentary Integumentary: Denies lesions, rash or skin ulcer Neurologic Neurologic: Denies abnormal gait or abnormal speech Psychiatric Psychiatric: Denies anxiety or depression Endocrine Endocrinology: Denies fatigue Hematologic/Lymphatic Hematologic/Lymphatic: Denies easy bleeding or easy bruising Physical Exam Const alert, oriented x3 and no apparent distress General Appearance: cooperative Nutritional Appearance: thin HEENT normocephalic, head/scalp atraumatic and moist oral mucous membranes Eyes PERRL, EOMs intact bilaterally and conjunctivae normal Neck supple General: trachea midline Chest inspection of chest normal Resp Resp Narrative: Globally diminished air movement throughout all lung echevarria. Cardio regular rate and regular rhythm GI normal to inspection, nondistended, normoactive bowel sounds Extremity no clubbing, cyanosis or edema Skin no rashes or lesions noted Neuro CN's II-XII intact bilaterally, moves all extremities and no focal motor deficits Psych Mood & Affect: flat affect Medical Records Data Medical Nutrition Assessment Dietitian: Malnutrition Criteria Met Start: 01/15/22 11:15 Freq: Status: Active Protocol: Document 01/15/22 11:16 (Rec: 01/15/22 11:16 [id number]) Nutrition Malnutrition Evidence of Malnutrition Exists Yes Malnutrition (severe): Chronic Evidenced By Suboptimal Energy Intake ( Severe),Weight Loss (Severe), Physical Changes (Severe) Clinical Problem Chronic Disease or Condition Related Malnutrition Etiology severe, chronic malnutrition related to inadequate energy intake w/ increased energy needs d/t COPD Signs/Symptoms as evidenced by unintentional wt loss of 12.8#/10% x 3 months; estimated PO intake meeting <75% of estimated energy needs >3 months; severe muscle wasting/fast loss per physical exam- evident in clavicles, acromion, scapula, temples, and orbital areas; BMI 17.6 Status Active Problem Recommendation Dietitian Recommendations/Changes continue regular diet; will add 120mL ensure enlive 4x/day w/ medpass and magic cup w/ lunch for additional calories/ protein if consumed given severe malnutrition Lab / Micro Data Result Diagrams: 01/15/22 05:59 01/15/22 05:59 Labs: Laboratory Results - last 24 hr 01/15/22 05:59: Differential Comment SCANNED 01/15/22 05:59: Sodium 133 L, Potassium 4.7, Chloride 97 L, Carbon Dioxide 31.0, Anion Gap 5, BUN 21 H, Creatinine 0.78, Estim Creat Clear Calc 74.32, Est GFR (MDRD) Af Amer 131, Est GFR (MDRD) Non-Af 108, BUN/Creatinine Ratio 26.9 H, Glucose 145 H, Calcium 9.4 Micro: Microbiology 01/15/22 05:15 Sputum, Expectorated/Coughed Gram Stain - Final Charges/Coding Visit Charges Inpatient E&M: 01367 Init Hosp L3
[2022-01-16] MEDS: Ipratropium/Albuterol Sulfate 3 ML AMPUL.NEB INHALATION ×4 (06:59→19:58)
[2022-01-16] MEDS: Enoxaparin 40 MG/0.4 ML Syringe SC (09:26)
[2022-01-16] MEDS: Azithromycin 250 MG Tablet 500 MG PO (09:26)
--- NOTE | 2022-01-16 11:17 | PCM.PN.HOSP ---
Subjective Subjective Follow-up for acute hypoxic respiratory failure secondary to COPD exacerbation. Patient shortness of breath and oxygenation has improved. Objective Data Objective Data Vital Signs: Vital Signs Temp Pulse Resp BP Pulse Ox 98.2 F 104 H 20 H 144/67 H 93 01/16/22 11:10 01/16/22 11:10 01/16/22 11:10 01/16/22 11:10 01/16/22 11:10 Oxygen Flow Rate (L/min) [ 6 AMBULATING with Oxygen #1] Oxygen Flow Rate (L/min) [At 2 REST with Oxygen] Oxygen Flow Rate (L/min) 6 Oxygen Delivery Method Nasal Cannula Weight: 112 lb 3.445 oz Body Mass Index (BMI) 17.5 Intake & Output: Intake and Output for Last 24 Hours 01/14/22 01/15/22 01/16/22 23:59 23:59 23:59 Intake Total 930 / 930 50 / 50 Balance 930 / 930 50 / 50 Medical Nutrition Assessment Dietitian: Malnutrition Criteria Met Start: 01/15/22 11:15 Freq: Status: Active Protocol: Document 01/15/22 11:16 AG (Rec: 01/15/22 11:16 AG [id number]) Nutrition Malnutrition Evidence of Malnutrition Exists Yes Malnutrition (severe): Chronic Evidenced By Suboptimal Energy Intake ( Severe),Weight Loss (Severe), Physical Changes (Severe) Clinical Problem Chronic Disease or Condition Related Malnutrition Etiology severe, chronic malnutrition related to inadequate energy intake w/ increased energy needs d/t COPD Signs/Symptoms as evidenced by unintentional wt loss of 12.8#/10% x 3 months; estimated PO intake meeting <75% of estimated energy needs >3 months; severe muscle wasting/fast loss per physical exam- evident in clavicles, acromion, scapula, temples, and orbital areas; BMI 17.6 Status Active Problem Recommendation Dietitian Recommendations/Changes continue regular diet; will add 120mL ensure enlive 4x/day w/ medpass and magic cup w/ lunch for additional calories/ protein if consumed given severe malnutrition Lab / Micro Data Result Diagrams: 01/15/22 05:59 01/15/22 05:59 Micro: Microbiology 01/15/22 05:15 Sputum, Expectorated/Coughed Gram Stain - Final 01/14/22 18:55 Nasal Secretion SARS-CoV-2 & FLU Antigen (Rapid) - Final Physical Exam Narrative Seen and examined General: Alert, Oriented x3, Cooperative, pulmonary cachexia HEENT: Atraumatic, PERRLA, EOMI, Normocephalic Oral: No Gingival or Mucosal Lesions/ Ulcerations Neck: Supple, No JVD, Negative Carotid Bruits Chest/lungs: Pectus excavatum. Air entry severely diminished in all lung echevarria. Bilateral rhonchi present improved. Dyspnea improved. On 2 L of oxygen hypoxia on ambulation. Cardiovascular: Heart rate in 90s normal S1, Normal S2, No murmurs Abdomen: Bowel Sounds Present, Soft, Non Tender, Non-Distended : No renal angle tenderness. No suprapubic tenderness. Extremities: No edema, Capillary Refill Less than 3 Seconds Skin: No rashes, No breakdown Musculoskeletal: Moderate loss of muscles of extremities loss of subcutaneous fat. No Tenderness to Palpation of Joints or Extremities Neurological: Cranial nerves II-XII grossly intact, DTR 2+/4 and Symmetrical, Neuro grossly intact Psych/Mental Status: Normal Affect, Appropriate Assessment & Plan Assessment/Plan (1) Acute on chronic respiratory failure with hypoxia and hypercapnia: (2) Chronic obstructive pulmonary disease with (acute) exacerbation: PLAN: This is a 56-year-old gentleman was admitted for severe shortness of breath, hypoxia 73% on room air. 1. Acute on chronic hypoxic and hypercapnic respiratory failure secondary to COPD exacerbation: ABG 7.33/60/75 on 40% FiO2. ABG suggestive of chronic respiratory acidosis with bicarb 35. ABG interpretation shows mixed acid base abnormality with chronic respiratory acidosis and metabolic alkalosis. Discussed with the commercial or institutional cleaner and agreed to see inpatient. Continue IV Solu-Medrol DuoNeb nebulization every 4 hourly scheduled. Continue to wean oxygen. Incentive spirometry and Pep. Chest x-ray shows hyperinflation flattening of diaphragm, increased craniocaudal diameter suggestive of emphysema ? Flu and COVID-negative. Started on Zithromax for anti-inflammatory effect 01/16: Home oxygen qualification test done. 85% at rest, 91% on 2 L of oxygen. 86% on ambulation at 6 L of oxygen. As patient oxygen, still high on ambulation therefore not discharged today. Continue bronchodilator and above treatment. Possible discharge tomorrow on oxygen if ambulatory oxygen requirement is less than 6 L/min. Patient seen by commercial or institutional cleaner Dr. Menon. Prolonged steroid taper at discharge. Continue azithromycin to complete treatment course. Patient on Breztri and as needed albuterol at home. 2. 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 Medical history mentions asthma and COPD both. 3. GERD: On PPI 4. DVT: Lovenox Charges/Coding Visit Charges Inpatient E&M: 16706 Subs Hosp L2
[2022-01-16] MEDS: Sodium Chloride 0.65% 1 SPRAY SPRAY.BTL 2 SPRAY NASAL (12:34)
--- NOTE | 2022-01-16 21:55 | CPS ---
Patient states he is feeling much better now than he was when he first tried to wear the bipap, however, he says that he does not want to wear the bipap at all even if he is in respiratory distress. The patient remains stable on 6 liters NC with a sat of 95%
[2022-01-17] VITALS (9 sets, daily range): BP systolic 110–126; BP diastolic 81–84; PULSE 82–107; RESP 18–22; TEMP 36.5–36.8; O2SAT 86–99
[2022-01-17] MEDS: Acetaminophen 325 MG Tablet 650 MG PO ×2 (01:00→07:20)
[2022-01-17] MEDS: Ipratropium/Albuterol Sulfate 3 ML AMPUL.NEB INHALATION ×2 (07:12→11:13)
--- NOTE | 2022-01-17 08:38 | PN.CC_ITS ---
Assessment & Plan Assessment/Plan (1) Chronic obstructive pulmonary disease with (acute) exacerbation: PLAN: RECOMMENDATIONS: 1. Wean supplemental oxygen to maintain saturations at or above 90%. 2. Continue azithromycin to complete treatment course. 3. Continue scheduled bronchodilators and IV steroids. Transition to prednisone on discharge with 12-day taper 4. Anticipate prolonged steroid taper at discharge. 5. Perform walking oximetry study prior to consideration for discharge home. Okay to discharge once tolerates ambulation on 6 L or less 6. The patient should follow-up in the pulmonary medicine clinic in 2 weeks. IMPRESSIONS: 1. COPD exacerbation with associated hypoxemia and hypercapnia The patient has a self-reported history of COPD of unknown severity. He has never been evaluated by a geometry professor, nor has he ever completed pulmonary function studies. Despite this, the patient is currently being maintained on Breztri and as needed albuterol by his PCP. There is no clear precipitating etiology for his acute respiratory decompensation. He does report compliance with his prescribed inhalers. Although he does have an extensive tobacco abuse history, he claims to have quit smoking 1 week ago. Exact quantification clarification of lung function will be helpful in avoiding future complications. Patient has not been using incentive spirometer, so compliance with this may help with oxygenation. Ideally, he needs to have baseline PFTs completed. In addition, given his age and smoking history, he would be a candidate for low- dose CT scan, which can be ordered at his follow-up office visit. 2. Chronic tobacco dependency, in remission The patient has an extensive tobacco abuse history, smoking upwards of 1.5 packs of cigarettes per day, but claims to have quit smoking approximately 1 week ago. Ongoing cessation was strongly recommended. As noted above, the patient is a candidate for yearly low-dose CT scan, which can be ordered at his follow-up pulmonary office visit. This note was generated with [employer] dictation software. It may contain incorrect words, spelling, and punctuation that were not noted in checking the note before signing. Subjective Subjective Patient did okay overnight. No acute issues were reported. Patient does report a cough that is relatively unchanged. Patient states he has not used his incentive spirometer since being here. Patient is slightly frustrated that he was not able to be discharged yesterday, but was found to have significant FiO2 requirements on walking oximetry. Patient states he has not required supplemental oxygen previously. Objective Data Objective Data Vital Signs: Vital Signs Temp Pulse Resp BP Pulse Ox 36.5 C L 82 18 110/81 H 97 01/17/22 02:39 01/17/22 07:13 01/17/22 07:13 01/17/22 02:39 01/17/22 07:36 Oxygen Flow Rate (L/min) [ 6 AMBULATING with Oxygen #1] Oxygen Flow Rate (L/min) [At 2 REST with Oxygen] Oxygen Flow Rate (L/min) 4 Oxygen Delivery Method Nasal Cannula Weight: 50.9 kg Body Mass Index (BMI) 17.5 Intake & Output: Intake and Output for Last 24 Hours 01/15/22 01/16/22 01/17/22 23:59 23:59 23:59 Intake Total 930 / 930 800 / 800 Balance 930 / 930 800 / 800 Medical Nutrition Assessment Dietitian: Malnutrition Criteria Met Start: 01/15/22 11:15 Freq: Status: Active Protocol: Document 01/15/22 11:16 AG (Rec: 01/15/22 11:16 [id number]) Nutrition Malnutrition Evidence of Malnutrition Exists Yes Malnutrition (severe): Chronic Evidenced By Suboptimal Energy Intake ( Severe),Weight Loss (Severe), Physical Changes (Severe) Clinical Problem Chronic Disease or Condition Related Malnutrition Etiology severe, chronic malnutrition related to inadequate energy intake w/ increased energy needs d/t COPD Signs/Symptoms as evidenced by unintentional wt loss of 12.8#/10% x 3 months; estimated PO intake meeting <75% of estimated energy needs >3 months; severe muscle wasting/fast loss per physical exam- evident in clavicles, acromion, scapula, temples, and orbital areas; BMI 17.6 Status Active Problem Recommendation Dietitian Recommendations/Changes continue regular diet; will add 120mL ensure enlive 4x/day w/ medpass and magic cup w/ lunch for additional calories/ protein if consumed given severe malnutrition Lab / Micro Data Result Diagrams: 01/15/22 05:59 01/15/22 05:59 Micro: Microbiology 01/15/22 05:15 Sputum, Expectorated/Coughed Gram Stain - Final 01/15/22 05:15 Sputum, Expectorated/Coughed Respiratory Culture - Pr eliminary Appears to be normal respiratory isael. Further studies to follow. 01/14/22 18:55 Nasal Secretion SARS-CoV-2 & FLU Antigen (Rapid) - Final Physical Exam Const alert, oriented x3 and no apparent distress General Appearance: cooperative Nutritional Appearance: thin HEENT normocephalic, head/scalp atraumatic and moist oral mucous membranes Eyes PERRL, EOMs intact bilaterally and conjunctivae normal Neck supple General: trachea midline Chest inspection of chest normal Resp Resp Narrative: Globally diminished air movement throughout all lung echevarria. Cardio regular rate and regular rhythm GI normal to inspection, nondistended, normoactive bowel sounds Extremity General Extremity: clubbing; Negative for cyanosis or edema Skin no rashes or lesions noted Neuro CN's II-XII intact bilaterally, moves all extremities and no focal motor deficits Psych Mood & Affect: flat affect Charges/Coding Visit Charges Inpatient E&M: 20411 Subs Hosp L2
[2022-01-17] MEDS: Enoxaparin 40 MG/0.4 ML Syringe SC (09:27)
[2022-01-17] MEDS: Azithromycin 250 MG Tablet 500 MG PO (09:27)
[2022-01-17 10:12] LABS: Pathologist Review Reviewed
--- NOTE | 2022-01-17 13:32 | PCM.DC ---
Discharge Instructions Diet Discharge Diet: No restrictions Dressing / Incision Call your doctor if your incision/area has: Continuous Slow Oozing Call your doctor if you observe: Shortness of breath Follow Up Care Test Results: Test results from this visit will be discussed in further detail at your follow-up appointment, if applicable. Discharge Plan Admission Admit Date/Time: 01/14/22 20:10 Primary Reason for Your Visit: COPD exacerbation Attending Provider: Darryl Cunningham Primary Care Provider: Alannah Hart NP Consulting Providers: Boris Parra ; Jatin Menon ; Adelaida Hansen NP Discharge Orders/Prescriptions Prescriptions: New prednisone 20 mg tablet 40 mg PO DAILY Qty: 10 RF: 0 albuterol sulfate [ProAir HFA] 90 mcg/actuation HFA aerosol inhaler 2 puff inhalation Q6H PRN (Reason: shortness of breath or wheezing) Qty: 6.7 RF: 0 Continued Breztri Aerosphere 160-9-4.8 mcg/actuation HFA aerosol inhaler 2 inh INHALATION BID RF: 0 Referrals / Follow Up: Care Physician,No Primary [NON-STAFF] - Adelaida Hansen MARKETING SPECIALIST, MARKETING SPECIALIST-C [Nurse Practitioner] - 02/03/22 8:45 am Alannah Hart NP, MARKETING SPECIALIST-C [Primary Care Provider] - Disposition Disposition (needs filled in before D/C Order can be placed): Home, Self Care
--- NOTE | 2022-01-17 13:43 | PCM.DC.SUM ---
Providers Date of Admission: 01/14/22 Primary Care Physician: JANETTE Fisher Consultations 01/15/22 13:54 Consult: Production Control Planner / Pulmonary Medicine Routine Consulting Provider: Pulmonary Medicine lizabeth Jiménez Reason for Consult: COPD exa EMERGENT Consult: No MD Notified: Yes Date Notified: 01/15/22 Time Notified: 13:54 Method of Notification: Text Reason For Visit: HYPOXIA FROM COPD Diagnosis Discharge Diagnosis (1) Chronic obstructive pulmonary disease with (acute) exacerbation: Status: Chronic Code(s): J44.1 - Chronic obstructive pulmonary disease with (acute) exacerbation Medications at Discharge Home Medications Breztri Aerosphere 2 inh INHALATION BID 01/14/22 albuterol sulfate [ProAir HFA] 2 puff INHALATION Q6H PRN #6.7 g 01/17/22 prednisone 40 mg PO DAILY #10 tab 01/17/22 Hospital Course Operations None Procedures None Summary of Care Provided Minutes Spent on Discharge: 32 Hospital Course: 56 year old male presents with shortness of breath. Patient diagnosed with COPD exacerbation. Patient was started on methylprednisolone as well as bronchodilators and improved. Today, the patient is still requiring oxygen but 5 L with activity and 3 L at rest. Patient continue with prednisone burst 40 mg daily for 5 days and patient will follow up with pulmonology as outpatient. Physical Exam Const alert Resp normal respiratory effort, no retractions, no use of accessory muscles and clear to auscultation bilaterally Cardio regular rate, regular rhythm, S1 normal heart sound and S2 normal heart sound GI normal to inspection, nondistended, normoactive bowel sounds Neuro oriented x3 Sensorium / Orientation: awake and alert Medical Records Data Medical Nutrition Assessment Dietitian: Malnutrition Criteria Met Start: 01/15/22 11:15 Freq: Status: Active Protocol: Document 01/17/22 11:58 RMA (Rec: 01/17/22 11:59 RMA [id number]) Nutrition Malnutrition Evidence of Malnutrition Exists Yes Malnutrition (severe): Chronic Evidenced By Suboptimal Energy Intake ( Severe),Weight Loss (Severe), Physical Changes (Severe) Clinical Problem Chronic Disease or Condition Related Malnutrition Etiology severe, chronic malnutrition related to inadequate energy intake w/ increased energy needs d/t COPD Signs/Symptoms as evidenced by unintentional wt loss of 12.8#/10% x 3 months; estimated PO intake meeting <75% of estimated energy needs >3 months; severe muscle wasting/fast loss per physical exam- evident in clavicles, acromion, scapula, temples, and orbital areas; BMI 17.6 Status Active Problem Recommendation Dietitian Recommendations/Changes Will continue regular diet and magic cup w/ lunch for additional calories/protein. Will continue 120mL ensure enlive 4x/day w/ medpass as tolerated. Weight / BMI Weight Weight: 50.9 kg Body Mass Index (BMI) 17.5 ABG / Lab / Microbiology Data Result Diagrams: 01/15/22 05:59 01/15/22 05:59 Laboratory: Laboratory Results - last 24 hr 01/14/22 18:50: Diff Path Review Reviewed Microbiology: Microbiology 01/15/22 05:15 Sputum, Expectorated/Coughed Gram Stain - Final 01/15/22 05:15 Sputum, Expectorated/Coughed Respiratory Culture - Final 01/14/22 18:55 Nasal Secretion SARS-CoV-2 & FLU Antigen (Rapid) - Final D/C Instructions Discharge Diet: No restrictions Call your doctor if your incision/area has: Continuous Slow Oozing Call your doctor if you observe: Shortness of breath Meaningful Use Info Meaningful Use Diagnoses (Choose all that apply): None applicable Discharge Plan Admission Admit Date/Time: 01/14/22 20:10 Primary Reason for Your Visit: COPD exacerbation Attending Provider: Darryl Cunningham Primary Care Provider: Alannah Hart NP Consulting Providers: Boris Parra ; Jatin Menon ; Adelaida Hansen DIMENSION [employer]Y SUPERVISOR Discharge Orders/Prescriptions Prescriptions: New prednisone 20 mg tablet 40 mg PO DAILY Qty: 10 RF: 0 albuterol sulfate [ProAir HFA] 90 mcg/actuation HFA aerosol inhaler 2 puff inhalation Q6H PRN (Reason: shortness of breath or wheezing) Qty: 6.7 RF: 0 Continued Breztri Aerosphere 160-9-4.8 mcg/actuation HFA aerosol inhaler 2 inh INHALATION BID RF: 0 Referrals / Follow Up: Adelaida Hansen [employer] SUPERVISOR, D[employer] SUPERVISOR-C [Nurse Practitioner] - 02/03/22 8:45 am Alannah Hart [employer] SUPERVISOR, [employer] SUPERVISOR-C [Primary Care Provider] - Within 2 Weeks Disposition Disposition (needs filled in before D/C Order can be placed): Home, Self Care Charges/Coding Visit Charges Inpatient E&M: 36897 Disch Hosp
--- NOTE | 2022-01-17 14:06 | CASEMGMT ---
RN AVEL updated that patient will need home oxygen at discharge, 3lpm at rest and 5lpm with ambulation. Script received [place] [facility] [place] SHUBHAM VALLECILLO provided nursing with [employer] portable tank for at discharge.
--- NOTE | 2022-01-17 14:27 | CHAPLAIN ---
Type of Pastoral Visit _x__ Initial Visit ___ Follow-up Visit ___ On-call Visit ___ General Patient Visit ___ Spiritual Assessment ___ Family Conference ___ Bereavement ___ Rapid Response ___ Code Blue ___ Other (describe below) Pastoral Care Referral From _x__ Patient ___ Family ___ Nurse ___ Physician ___ Farm Agent ___ Retail Interior Designer ___ Other (describe below) Sacrament/Intervention _x__ Active listening ___ Anointing ___ Anabaptist ___ Bereavement ___ Communion ___ Lisa exploration ___ _x__ Life review _x__ Prayer ___ Reconciliation ___ Sacrament of Sick _x__ Supportive presence ___ Wedding ___ Other (describe below) Pastoral Comments patient sitting in a straight chair and this channeling machine runner pulls up a chair to sit in front of him; pt mostly looks at the ground the entire visit; pt makes statements about not doing so well, this is scary, I've done this to myself by smoking all those years, not sure about the future, yes, I'm frightened; asked open ended questions and pt refers to these comments; pt states that he is not a talker and that is why he is quiet for much of the time of this visit; pt asked about how he yoni, what are his feelings, who is his support, does lisa help him, remembering to seek help, focusing on what medicine can do for him, etc.; prayer and presence accepted gladly
--- NOTE | 2022-01-17 14:47 | PHA.DC.MR ---
Pharmacy Service has performed discharge medication reconciliation for this patient. The patient's discharge medication list was reviewed for discrepancies and discrepancies were resolved. Medication education papers prepared but patient was already D/C'ed when I went to family service counselor. Home Medications Breztri Aerosphere 2 inh INHALATION BID 01/14/22 albuterol sulfate [ProAir HFA] 2 puff INHALATION Q6H PRN #6.7 g 01/17/22 prednisone 40 mg PO DAILY #10 tab 01/17/22
== END 2022-01-17 14:45 | disposition home or self-care (01) | DRG 190 ==
LOC: ED 19:51 → PCU 20:27
PROVIDERS: Admitting Provider Family Medicine; Emergency Provider Emergency Medicine; PCP Nurse Practitioner
DX: J44.1 Chronic obstructive pulmonary disease with (acute) exacerbation (principal); J96.21 Acute and chronic respiratory failure with hypoxia; E43 Unspecified severe protein-calorie malnutrition; J96.22 Acute and chronic respiratory failure with hypercapnia; Z68.1 Body mass index [BMI] 19.9 or less, adult; K21.9 Gastro-esophageal reflux disease without esophagitis; F17.200 Nicotine dependence, unspecified, uncomplicated; Z20.822 Contact with and (suspected) exposure to COVID-19; Z87.891 Personal history of nicotine dependence
CPT/HCPCS: 36415; 36600; 71045; 80048; 80053; 82803; 83605; 85025; 85610; 85730; 87070; 87205; 87428; 93005; 94002; 94640; 97161; 97165; 97802; 99251; 99285; 99406; A4216; G0463

== ENCOUNTER → 2022-03-04 | Outpatient (CLI) | payer OTHER, SELFPAY ==
--- NOTE | 2022-03-04 13:21 | PFTCOMP_ITS ---
COMPLETE PULMONARY FUNCTION TEST INTERPRETATION Brief HPI: Patient is a 56-year-old male, currently under the care of Adelaida Hansen, who presents to [facility] for complete pulmonary function tests secondary to diagnosis of COPD. Respiratory therapist reports good effort and reproducible results. Interpretation: Forced expiration spirometry shows a very severe large airways obstructive ventilatory defect with an FEV1 of 19% predicted. There is no significant bronchodilator response by strict ATS criteria. Spirograms are of good quality and plateau slowly, indicating slowly emptying areas of the lungs. The respiratory flow volume loop shows decreased expiratory flow rates at all lung volumes consistent with airway obstruction. Lung volumes by body plethysmography show an elevated total lung capacity at 8.28 L, 139% predicted. FRC and RV are elevated out of proportion. Lung volume measurements are consistent with hyperinflation and air-trapping. Diffusion capacity by carbon monoxide is decreased at 44% predicted. The airway resistance is elevated. No previous pulmonary function tests were available for review. Impression: Irreversible very severe large airways obstructive ventilatory defect, resulting in air trapping with hyperinflation, and a symmetric reduction diffusing capacity, in a pattern consistent with advanced COPD.
[2022-03-07 20:15] LABS: Alpha Antitrypsin Serum 108 mg/dL (101-187)
== END | disposition home or self-care (01) ==
PROVIDERS: PCP Nurse Practitioner; Referring Provider Nurse Practitioner Acute Care; Visit Provider Nurse Practitioner Acute Care
DX: J44.9 Chronic obstructive pulmonary disease, unspecified (principal); J96.00 Acute respiratory failure, unspecified whether with hypoxia or hypercapnia
CPT/HCPCS: 36415; 82103; 94060; 94726; 94729

== ENCOUNTER → 2024-12-04 | Outpatient (CLI) | payer OTHER, SELFPAY | END | disposition home or self-care (01) | PROVIDERS: PCP Nurse Practitioner; Referring Provider Nurse Practitioner; Visit Provider Nurse Practitioner | DX: L72.3 Sebaceous cyst (principal); L08.9 Local infection of the skin and subcutaneous tissue, unspecified | CPT/HCPCS: 87070; 87205 ==